=== PATIENT | male | born 1975 | race African-American/Black ===

== ENCOUNTER 2017-05-11 01:41 | Observation (INO) | payer SELFPAY ==
[2017-05-11 02:44] LABS: #Eosinphils 0.2 thou/uL (0.0-0.7); #Lymphocytes 1.1 thou/uL (1.20-3.40); #Monocytes 0.4 thou/uL (0.11-0.59); #Neutrophils 3.5 thou/uL (1.40-6.50); %Basophils 0.4 % (0.0-1.0); %Eosinophils 3.4 % (0.0-10.0); %Lymphocytes 21.1 % (21.0-51.0); %Monocytes 8.2 % (0.0-10.0); Hematocrit 40.8 % (42.0-52.0); Red Blood Cell (RBC) Count 4.94 mill/uL (4.70-6.10); White Blood Cell (WBC) Count 5.3 thou/uL (4.8-10.8)
[2017-05-11 02:50] LABS: Prothrombin Time 12.4 SEC (12.0-14.7)
[2017-05-11 03:11] LABS: ALT (SGPT) 22 U/L (8-55); AST (SGOT) 23 U/L (5-34); Alkaline Phosphatase 70 U/L (40-150); Anion Gap 12 mmol/L (10-20); BUN (Urea Nitrogen) 12 mg/dL (8.9-20.6); Bilirubin, Total 0.3 mg/dL (0.2-1.2); CK (CPK) 775 U/L (30-200); Calc. Creatinine Clearance 0 mL/min (70-130); Calcium 8.7 mg/dL (7.8-10.44); Carbon Dioxide 26 mmol/L (22-29); Chloride 99 mmol/L (98-107); Estimated GFR-MDRD 79; Globulin 3.5 g/dL (2.4-3.5); Lipase 46 U/L (8-78); Protein, Total 7.2 g/dL (6.0-8.3)
[2017-05-11 03:13] LABS: Troponin I Less than 0.010 ng/mL (< 0.028)
[2017-05-11 04:31] LABS: Bilirubin Negative (Negative); Blood, Urine Negative (Negative); Glucose, Urine (Dipstick) >=1000 mg/dL (Negative); Ketone, Urine Negative (Negative); Nitrite Negative (Negative); Protein, Urine (Dipstick) 30 mg/dL (Neg-Trace)
[2017-05-11 04:33] LABS: Bacteria/HPF None Seen HPF (None Seen); Hyaline Casts/LPF 0-3 HYALINE CAST LPF (0-3 Hyaline); RBC/HPF 0-3 HPF (0-3); Squamous Epithelial None Seen HPF (0-3); WBC/HPF 0-3 HPF (0-3)
[2017-05-11 04:49] LABS: Amphetamine Not Detected (NotDetected); Methadone Not Detected (NotDetected); Methamphetamine Not Detected (NotDetected)
[2017-05-11] MEDS ORDERED: Acetaminophen 325 MG TAB PO PRN ×2 (05:17→08:35)
[2017-05-11 05:30] VITALS: BMI 35.2
[2017-05-11 06:51] LABS: Troponin I 0.017 ng/mL (< 0.028)
[2017-05-11] MEDS ORDERED: Bisacodyl 5 MG TAB PO PRN (08:35)
[2017-05-11] MEDS ORDERED: Nitroglycerin 0.4 MG TAB (25 Tab Bottle) PO PRN (08:35)
--- NOTE | 2017-05-11 08:38 | RAD ---
PORTABLE CHEST: Date: 05/11/17 HISTORY: Heart palpitations. FINDINGS: Lungs are clear. Heart and mediastinum unremarkable. Vasculature is normal. IMPRESSION: Unremarkable portable chest. POS: [facility]
[2017-05-11] MEDS ORDERED: Aspirin 325 mg Enteric Coated Tablet PO SCH (09:00)
[2017-05-11] MEDS ORDERED: Enoxaparin Sodium 40 MG/0.4 ML SYRINGE SC SCH (09:00)
[2017-05-11] MEDS ORDERED: Aspirin 325 MG TAB PO SCH (09:00)
[2017-05-11 09:57] LABS: Troponin I Less than 0.010 ng/mL (< 0.028)
[2017-05-11] MEDS ORDERED: Sodium Chloride 0.9% 1,000 ML IV SCH (13:00)
--- NOTE | 2017-05-11 13:20 | HP ---
PRIMARY CARE PHYSICIAN: Dr. Donell Reese. CHIEF COMPLAINT: Palpitations. HISTORY OF PRESENT ILLNESS: LEONOR is a pleasant 42-year-old gentleman, who was seen at [facility] on 05/11/2017. Last night, he was sitting on the couch, watching a movie when he felt his heart racing. He reports taking BC powder for his headache yesterday, which contains aspirin and caffeine. He denies any chest pain. He denies any cough, fevers or chills. REVIEW OF SYSTEMS: The following complete review of systems was negative, unless otherwise mentioned in the HPI or below: CONSTITUTIONAL: Weight loss or gain, sense of well-being, ability to conduct usual activities, exerc ise tolerance. SKIN/BREAST: Rash, itching, changes in hair growth or loss, nail changes, breast lumps, tenderness, swelling, nipple discharge. EYES: Vision, double vision, tearing, blind spots, pain. ENT/MOUTH: Headaches (location, time of onset, duration, precipitating factors), vertigo, lightheade dness, injury. Vision, double vision, tearing, blind spots, pain, nose bleeding, colds, obstruction, discharge, dental difficulties, gingival bleeding, dentures, neck stiffness, pain, tenderness, masses in thyroid or other areas. CARDIOVASCULAR: Precordial pain, substernal distress, palpitations, syncope, dyspnea on exertion, or thopnea, nocturnal paroxysmal dyspnea, edema, cyanosis, hypertension, heart murmurs, varicosities, ph lebitis, claudication. RESPIRATORY: Pain, shortness of breath, wheezing, stridor, cough, hemoptysis, fever or night sweats GASTROINTESTINAL: Poor appetite, dysphagia, indigestion, abdominal pain, heartburn, eructation, naus ea, vomiting, hematemesis, jaundice, constipation, or diarrhea, abnormal stools (sheila-colored, tarry, bloody, greasy, foul smelling), flatulence, hemorrhoids, recent changes in bowel habits. GENITOURINARY: Urgency, frequency, dysuria, nocturia, hematuria, polyuria, oliguria, unusual (or glenda nge in) color of urine, stones, hesitancy, change in size of stream, dribbling, acute retention or in continence, libido, potency. MUSCULOSKELETAL: Pain, swelling, redness or heat of muscles or joints, limitation, of motion, muscul ar weakness, atrophy, cramps. NEUROLOGIC/PSYCHIATRIC: Convulsions, paralyses, tremor, incoordination, paresthesias, difficulties w ith memory of speech, sensory or motor disturbances, or muscular coordination (ataxia, tremor), emoti onal problems, anxiety, depression, previous psychiatric care, unusual perceptions, hallucinations. ALLERGY/IMMUNOLOGIC: Skin rash, anemia, bleeding tendency, polydipsia, polyuria, intolerance to heat or cold. PAST MEDICAL HISTORY: Significant for diabetes mellitus type 2, hypertension, and dyslipidemia. PAST SURGICAL HISTORY: Significant for ACL repair in the right knee. SOCIAL HISTORY: Patient smokes cigars occasionally. He drinks alcohol occasionally. He denies any recreational drug use. FAMILY HISTORY: Significant for of his father from myocardial infarction. ALLERGIES: No known drug allergies. CURRENT MEDICATIONS: Lisinopril/hydrochlorothiazide 20/25 mg daily, simvastatin 40 mg daily, glyburi de 10 mg 2 times a day, metformin 500 mg 2 times a day. PHYSICAL EXAMINATION: GENERAL: Mr. Beckman is awake and alert, not in acute distress. VITAL SIGNS: Blood pressure is 144/87, pulse is 90, he is breathing at rate of 18, and saturating 98 % on room air. He is afebrile. EYES: No scleral icterus. No conjunctival pallor. ENT: Moist mucosal membranes, no oropharyngeal erythema or exudates. NECK: Supple, nontender, normal range of movement. Trachea is midline. RESPIRATORY: Accessory muscles of breathing are not active. Chest wall movements are symmetric bila terally. LUNGS: Clear to auscultation without wheeze, rhonchi or crepitations. CARDIOVASCULAR: S1 and S2 are heard, regular. LUNGS: Peripheral pulses palpable. No carotid bruit, no pericardial rub. ABDOMEN: Soft, nontender, bowel sounds are heard, no hepatomegaly, no splenomegaly. NEUROLOGIC: Cranial nerves II-XII are intact. Deep tendon reflexes 2+. SKIN: No rashes or subcutaneous nodules. MUSCULOSKELETAL: Power is 5/5 in all 4 extremities. Normal range of movement at all major extremity joints. LYMPHATIC: No cervical lymphadenopathy. PSYCHIATRIC: Normal mood, normal affect, patient is oriented to person, place, and time. LABORATORY AND DIAGNOSTIC DATA: Mr. Beckman's labs and investigations were reviewed. I reviewed hi s electrocardiogram, which shows normal sinus rhythm, no ST changes to suggest an acute coronary synd temo. I also reviewed his chest x-ray, which does not show any pulmonary infiltrates. Laboratory in vestigation showed normal white count, normocytic anemia with hemoglobin of 13.4, normal platelet cou nt, D-dimer less than 0.27, normal INR, decreased sodium of 133, normal potassium, normal creatinine, normal troponin I x3, elevated CK of 775, elevated triglycerides of 303, elevated cholesterol of 249 , LDL cholesterol 149, HDL cholesterol 39 and a normal TSH. Lipase is normal. Urinalysis is positiv e for protein and glucose. Urine toxicology screen is negative. ASSESSMENT AND PLAN: Mr. Beckman is a pleasant 42-year-old gentleman, who was seen at [facility] on 05/11/2017. His problem list includes: 1. Palpitations: Most likely secondary to his use of caffeinated medication. However, I cannot rul e out atypical acute coronary syndrome given his significant medical comorbidities. D-dimer is simone l. We will check nuclear stress test to rule out coronary artery disease. 2. Rhabdomyolysis: The patient has been encouraged to maintain oral fluid intake. We will also pro vide intravenous hydration. 3. Hyponatremia: Mild. 4. Diabetes mellitus type 2: His blood sugar in the emergency room was 339. He will need follow up with his primary care provider regarding optimization of diabetes mellitus management. 5. Dyslipidemia: We will continue him on his statin for now, he will need to follow up with his [facility] care provider. 6. Hypertension: Monitor vital signs, titrate antihypertensives as needed. Many thanks for allowing me to participate in your patient's care. Please feel free to contact me wi th any questions or concerns. LEVEL OF RISK: High. LEVEL OF COMPLEXITY: High.
[2017-05-11 15:46] VITALS: BP 136/74; TEMP 98.2
--- NOTE | 2017-05-11 15:49 | NM ---
MYOCARDIAL PERFUSION SCAN: HISTORY: Chest pain. TECHNIQUE: The patient was given 9 mCi of technetium sestamibi for rest imaging and 28 mCi for stress imaging. Patient was stressed with exercise according to [facility] protocol. Left ventricle was imaged with SPECT imaging and CT attenuation images obtained. FINDINGS: Normal activity throughout the left ventricle is seen on stress and rest images. No evidence of rever sible ischemia. Wall motion is normal. Ejection fraction is recorded at 63%. IMPRESSION: Negative sestamibi stress test. POS: [facility]
--- NOTE | 2017-05-12 02:32 | DIS ---
DATE OF ADMISSION: 05/11/2017 DATE OF DISCHARGE: 05/11/2017 PRIMARY CARE PHYSICIAN: Donell Reese M.D. DISCHARGE DIAGNOSIS: Palpitations, resolved. DISCHARGE MEDICATIONS: Same as preadmission home medications as dictated on history and physical not e from 05/11/2017. HOSPITAL COURSE: Mr. Beckman is a pleasant 42-year-old gentleman who was admitted to [facility] on observation status on 05/11/2017, for palpitations. He had a nuclear stress t est, which was a negative sestamibi stress test. Left ventricular ejection fraction was recorded at 63%. He is being discharged home in a stable condition and advised to follow up with his primary care phys ician for optimization of dyslipidemia and diabetes mellitus treatments. He has also been advised to stop tobacco use. He has also been advised to maintain good oral intake, since his CK was elevated at 775 at the time o f admission. Many thanks for allowing me to participate in your patient's care. Please feel free to contact me wi th any questions or concerns. DISCHARGE DESTINATION: Home.
== END 2017-05-11 18:06 | disposition home or self-care (01) ==
LOC: ERS 01:41 → 2SW 03:51
PROVIDERS: ADMIT Internal Medicine; ATTEND Internal Medicine
DX: R00.2 Palpitations (principal); E11.9 Type 2 diabetes mellitus without complications; I10 Essential (primary) hypertension; E78.5 Hyperlipidemia, unspecified; F17.210 Nicotine dependence, cigarettes, uncomplicated; M62.82 Rhabdomyolysis; E87.1 Hypo-osmolality and hyponatremia; Z79.84 Long term (current) use of oral hypoglycemic drugs; Z79.899 Other long term (current) drug therapy; Z98.890 Other specified postprocedural states
CPT/HCPCS: 36415; 36416; 71010; 78452; 80053; 80061; 80306; 81003; 81015; 82550; 82553; 83690; 84443; 84484; 85025; 85379; 85610; 85730; 93005; 93017; 96360; 96361; 99406; A9500; G0378

== ENCOUNTER 2019-10-22 15:12 | Emergency (ER) | payer BC, SELFPAY ==
[2019-10-22 15:36] LABS: #Basophils 0.1 thou/uL (0.0-0.2); #Eosinphils 0.2 thou/uL (0.0-0.7); #Lymphocytes 4.3 thou/uL (1.20-3.40); #Monocytes 0.7 thou/uL (0.11-0.59); #Neutrophils 3.8 thou/uL (1.40-6.50); %Eosinophils 2.2 % (0.0-10.0); %Monocytes 7.9 % (0.0-10.0); Mean Corpuscular HGB CONC 31.6 g/dL (32.0-36.0); Mean Corpuscular Hemoglobin 26.5 pg (27.0-31.0); Mean Corpuscular Volume 83.8 fL (78.0-98.0); Mean Platelet Volume 8.4 fL (7.4-10.4); Platelet Count 267 thou/uL (130-400); Red Blood Cell (RBC) Count 5.27 mill/uL (4.70-6.10); White Blood Cell (WBC) Count 9.2 thou/uL (4.8-10.8)
[2019-10-22 15:56] LABS: ALT (SGPT) 24 U/L (8-55); AST (SGOT) 26 U/L (5-34); Albumin 4.4 g/dL (3.5-5.0); Alkaline Phosphatase 76 U/L (40-110); Anion Gap 15 mmol/L (10-20); BUN (Urea Nitrogen) 15 mg/dL (8.9-20.6); Bilirubin, Total 0.4 mg/dL (0.2-1.2); Calc. Creatinine Clearance 0 mL/min (70-130); Calcium 9.5 mg/dL (7.8-10.44); Carbon Dioxide 26 mmol/L (22-29); Chloride 101 mmol/L (98-107); Estimated GFR-MDRD Greater than 90; Globulin 3.9 g/dL (2.4-3.5); Glucose 127 mg/dL (70-105); Lipase 72 U/L (8-78); Protein, Total 8.3 g/dL (6.0-8.3); Sodium 139 mmol/L (136-145)
--- NOTE | 2019-10-22 16:24 | RAD ---
CHEST ONE VIEW: 10/22/19 HISTORY: Weakness. COMPARISON: Radiograph 05/11/17. FINDINGS: Lungs are clear. No pneumothorax or effusion. The cardiac silhouette and mediastinal contours are wit hin normal limits. No acute osseous abnormality. IMPRESSION: No acute intrathoracic abnormality. POS: HOME
== END 2019-10-22 17:07 | disposition home or self-care (01) ==
LOC: ERS 15:12
DX: E87.6 Hypokalemia (principal); R00.2 Palpitations; Z87.891 Personal history of nicotine dependence; E11.9 Type 2 diabetes mellitus without complications; I10 Essential (primary) hypertension; Z79.899 Other long term (current) drug therapy
CPT/HCPCS: 71045; 80053; 83690; 84484; 85025; 85379; 93005; 94760

== ENCOUNTER 2019-11-11 17:01 | Emergency (ER) | payer BC ==
[2019-11-11 18:16] LABS: #Basophils 0.1 thou/uL (0.0-0.2); #Eosinphils 0.1 thou/uL (0.0-0.7); #Lymphocytes 1.7 thou/uL (1.20-3.40); #Monocytes 0.4 thou/uL (0.11-0.59); #Neutrophils 3.4 thou/uL (1.40-6.50); %Basophils 1.2 % (0.0-1.0); %Eosinophils 1.9 % (0.0-10.0); %Lymphocytes 30.2 % (21.0-51.0); %Monocytes 6.3 % (0.0-10.0); %Neutrophils 60.5 % (42.0-75.0); Hemoglobin 13.2 g/dL (14.0-18.0); Mean Corpuscular HGB CONC 31.6 g/dL (32.0-36.0); Mean Corpuscular Hemoglobin 26.1 pg (27.0-31.0); Mean Corpuscular Volume 82.6 fL (78.0-98.0); Mean Platelet Volume 7.7 fL (7.4-10.4); Platelet Count 276 thou/uL (130-400); RBC Distribution Width 12.8 % (11.5-14.5); Red Blood Cell (RBC) Count 5.04 mill/uL (4.70-6.10); White Blood Cell (WBC) Count 5.6 thou/uL (4.8-10.8)
[2019-11-11 18:35] LABS: ALT (SGPT) 18 U/L (8-55); AST (SGOT) 20 U/L (5-34); Albumin 4.3 g/dL (3.5-5.0); Alkaline Phosphatase 59 U/L (40-110); Anion Gap 11 mmol/L (10-20); BUN (Urea Nitrogen) 14 mg/dL (8.9-20.6); Bilirubin, Total 0.3 mg/dL (0.2-1.2); Calc. Creatinine Clearance 0 mL/min (70-130); Calcium 9.4 mg/dL (7.8-10.44); Carbon Dioxide 29 mmol/L (22-29); Chloride 101 mmol/L (98-107); Estimated GFR-MDRD Greater than 90; Globulin 3.5 g/dL (2.4-3.5); Glucose 111 mg/dL (70-105); Potassium 3.8 mmol/L (3.5-5.1); Protein, Total 7.8 g/dL (6.0-8.3); Sodium 137 mmol/L (136-145)
== END 2019-11-11 19:59 | disposition home or self-care (01) ==
LOC: ERS 17:01
DX: R55 Syncope and collapse (principal); R42 Dizziness and giddiness; E11.9 Type 2 diabetes mellitus without complications; I10 Essential (primary) hypertension; Z87.891 Personal history of nicotine dependence; Z79.84 Long term (current) use of oral hypoglycemic drugs; Z79.899 Other long term (current) drug therapy
CPT/HCPCS: 36415; 80053; 85025; 93005; 96360